=== PATIENT | male | born 1930 | race Caucasian/White ===

== ENCOUNTER → 2016-06-06 | Outpatient (CLI) | payer OTHER ==
[~2016-06-06] MED LIST: AMLO25TA PO; ASPI1TAB PO; CARV25TA PO; CLON0.5T PO; FLUO10CA8 PO; FURO40TA2 PO; GLIP5TAB8 PO; IPRASOL4 INH; METF500T PO; PULM0.5S INH; SIMV40TA2 PO; THEO1CAP4 PO; TYLE167L PO; VANC1CAP6 PO; ZYLO300T4 PO
--- NOTE | 2016-06-06 16:28 | REP ---
CHEST, TWO VIEWS: HISTORY: COPD. COMPARISON: 06/29/2015 An increase in interstitial markings is present in the lungs consistent with chronic interstitial fibrosis. The heart is normal in size. The pulmonary vasculature is normal in appearance. Degenerative change is present in the thoracic spine. A stent is present in the aorta. IMPRESSION: Chronic interstitial fibrosis. Signed by Maurilio Adame MD 06/06/2016 04:32 P
== END ==
LOC: M SMT 10:08
PROVIDERS: ATTEND Internal Medicine Pulmonary Disease
DX: J44.9 Chronic obstructive pulmonary disease, unspecified (principal)